=== PATIENT | female | born 2000 | race Caucasian/White ===

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

== ENCOUNTER 2020-08-21 03:03 | Inpatient (IN) ==
[2020-08-21] MEDS ORDERED: ONDANSETRON 4 MG/2 ML VIAL IV PRN (03:12)
[2020-08-21] MEDS ORDERED: MEPERIDINE 50 MG/1 ML VIAL IV PRN (03:12)
[2020-08-21] MEDS ORDERED: OXYTOCIN/LR 20 UNIT/1,000 ML BAG IV SCH (03:30)
[2020-08-21] MEDS: LACTATED RINGERS 1,000 ML IV SCH ×2 (03:30→08:18)
[2020-08-21 03:44] LABS: Basophils % 0.2 % (0.0-0.8); Eosinophils # 0.3 10*3/uL (0.0-0.87); Eosinophils % 2.9 % (0.00-10.9); Hematocrit 36.2 VOL% (35.7-47.0); Hemoglobin 12.5 GM/DL (12.0-16.0); Immature Granulocytes % 0.5 %; Immature Granulocytes Absolute 0.06 #; Lymphocytes % 16.7 % (21.3-54.2); Mean Corpuscular HGB Conc 34.5 GM/DL (32-36); Mean Platelet Volume 9.7 FL (9.6-12.0); Monocytes % 8.5 % (1.7-12.7); Neutrophils % 71.2 % (38.7-73.9); Platelet Count 252 T/CUMM (130-400); Red Blood Count 3.85 MC/CUMM (3.8-5.5); White Blood Count 11.9 T/CUMM (4-12)
[2020-08-21 03:53] LABS: Albumin 3.1 G/DL (3.4-5.0); Calcium 8.5 MG/DL (8.5-10.1); Potassium 3.8 MMOL/L (3.5-5.1)
[2020-08-21] MEDS ORDERED: PROMETHAZINE 25 MG/1 ML VIAL IM PRN (07:32)
[2020-08-21] MEDS ORDERED: CITRIC ACID/SODIUM CITRATE 30 ML UDCUP PO ONE (07:32)
[2020-08-21] MEDS ORDERED: ePHEDrine 50 MG/ML VIAL IV PRN (07:32)
[2020-08-21] MEDS ORDERED: diphenhydrAMINE 50 MG/1 ML VIAL IV PRN (07:32)
[2020-08-21] MEDS ORDERED: NALOXONE 0.4 MG/ML VIAL IV PRN (07:32)
[2020-08-21] MEDS ORDERED: hydrOXYzine HCL 25 MG/1 ML VIAL IM PRN (07:32)
[2020-08-21] MEDS ORDERED: FAMOTIDINE 20 MG/2 ML VIAL IV ONE (07:32)
[2020-08-21] MEDS ORDERED: fentaNYL 2 MCG/ROPIV 0.2% EPID 100 ML EPIDURAL SCH (08:00)
[2020-08-21] MEDS ORDERED: miSOPROStoL 200 MCG TABLET ONE (08:29)
[2020-08-21] MEDS ORDERED: TRANEXAMIC ACID 1,000 MG/10 ML VIAL ONE (08:30)
[2020-08-21] MEDS ORDERED: METHYLERGONOVINE 0.2 MG/1 ML AMP ONE (08:30)
[2020-08-21] MEDS ORDERED: OXYTOCIN/LR 0 UNIT/0 ML BAG IV ONE (08:30)
[2020-08-21] MEDS ORDERED: CARBOPROST TROMETHAMINE 250 MCG/ML AMP IM ONE (08:31)
[2020-08-21] MEDS ORDERED: SODIUM CHLORIDE 0.9% 0 ML IV ONE (08:31)
[2020-08-21 10:09] LABS: Cord Venous Blood HCO3 22.7 MMOL/L; Cord Venous Blood PCO2 58.5 MMHG; Cord Venous Blood PO2 18.1
[2020-08-21] MEDS ORDERED: RHO(D) IMMUNE GLOBULIN 300 MCG SYRINGE IM ONE (13:49)
[2020-08-21] MEDS ORDERED: DIPH/TET/ACEL PERT BOOSTER VACCINE 0.5 ML VIAL IM ONE (13:49)
[2020-08-21] MEDS ORDERED: MEASLES/MUMPS/RUBELLA VACCINE 0.5 ML VIAL SUBCUT ONE (13:49)
[2020-08-21] MEDS ORDERED: BENZOCAINE 20%/MENTHOL 0.5% SPRAY 56 GM CAN TOP PRN (13:49)
[2020-08-21] MEDS ORDERED: BISACODYL 10 MG SUPP RECTAL PRN (13:49)
[2020-08-21] MEDS ORDERED: oxyCODONE/ACETAMINOPHEN 5-325 MG TABLET PO PRN (13:49)
[2020-08-21] MEDS ORDERED: ACETAMINOPHEN 325 MG TABLET PO PRN (13:49)
[2020-08-21] MEDS ORDERED: LANOLIN 50% CREAM 0.3 OZ TUBE TOP PRN (13:49)
[2020-08-21] MEDS ORDERED: HYDROCORTISONE 2.5% RECTAL CREAM 30 GM TUBE TOP PRN (13:49)
[2020-08-21] MEDS ORDERED: OXYTOCIN/LR 20 UNIT/1,000 ML BAG IV ONE (13:49)
[2020-08-21] MEDS ORDERED: WITCH HAZEL PADS 100/JAR TOP PRN (13:49)
[2020-08-21] MEDS: IBUPROFEN 800 MG TABLET PO PRN ×2 (14:30→20:43)
[2020-08-21] MEDS: DOCUSATE SODIUM 100 MG CAPSULE PO SCH (20:43)
[2020-08-21] MEDS: oxyCODONE/ACETAMINOPHEN 5-325 MG TABLET PO PRN (20:43)
[2020-08-22] MEDS: IBUPROFEN 800 MG TABLET PO PRN ×2 (02:20→20:43)
[2020-08-22] MEDS: oxyCODONE/ACETAMINOPHEN 5-325 MG TABLET PO PRN ×3 (02:21→18:08)
[2020-08-22 05:47] LABS: Basophils % 0.2 % (0.0-0.8); Eosinophils # 0.4 10*3/uL (0.0-0.87); Eosinophils % 2.7 % (0.00-10.9); Hematocrit 34.7 VOL% (35.7-47.0); Hemoglobin 11.4 GM/DL (12.0-16.0); Immature Granulocytes % 0.7 %; Immature Granulocytes Absolute 0.09 #; Lymphocytes # 2.2 10*3/uL (1.4-4.0); Mean Corpuscular HGB Conc 32.9 GM/DL (32-36); Mean Corpuscular Volume 95.1 FL (87-102); Mean Platelet Volume 9.9 FL (9.6-12.0); Monocytes % 8.4 % (1.7-12.7); Platelet Count 235 T/CUMM (130-400); Red Blood Count 3.65 MC/CUMM (3.8-5.5); Red Cell Distribution Width 11.9 % (9.3-17.3); White Blood Count 13.2 T/CUMM (4-12)
[2020-08-22] MEDS: LACTATED RINGERS 1,000 ML IV SCH (08:04)
[2020-08-22] MEDS: DOCUSATE SODIUM 100 MG CAPSULE PO SCH ×2 (08:21→20:43)
[2020-08-22] MEDS ORDERED: SERTRALINE 50 MG TABLET PO SCH (22:30)
[2020-08-22] MEDS ORDERED: CLORAZEPATE 3.75 MG TABLET PO ONE (22:30)
[2020-08-23] MEDS: oxyCODONE/ACETAMINOPHEN 5-325 MG TABLET PO PRN (04:32)
[2020-08-23] MEDS: DOCUSATE SODIUM 100 MG CAPSULE PO SCH (09:48)
[2020-08-23 11:11] VITALS: BP 111/64
== END 2020-08-23 13:15 | disposition home or self-care (01) | DRG 807 ==
LOC: N.LD 03:03 → N.OB 13:43
PROVIDERS: ADMIT Obstetrics & Gynecology; ATTEND Obstetrics & Gynecology

== ENCOUNTER 2021-09-04 17:14 | Observation (INO) ==
[2021-09-04 17:46] LABS: Glucose,Urine (UA) Negative (Negative); Ketones,Urine Negative (Negative); Nitrite,Urine Negative (Negative); Protein,Urine 30 mg/dL (Negative); Urine Appearance Clear (Clear); Urine Color Yellow (Yellow)
[2021-09-04 17:47] LABS: Bilirubin,Urine Negative (Negative); Blood, Urine Large mg/dL (Negative)
[2021-09-04 17:49] LABS: Bacteria,Urine Occasional /HPF (Few); Mucus,Urine Few /LPF (Occasional); RBC,Urine 1461 /HPF (0-4); Squamous Epithelial Cell,Urine Occasional /HPF (0-10)
[2021-09-04] MEDS ORDERED: LACTATED RINGERS 1,000 ML IV ONE (17:56)
[2021-09-04] MEDS ORDERED: MEPERIDINE 25 MG/1 ML VIAL IV ONE (18:05)
[2021-09-04] MEDS ORDERED: ONDANSETRON 4 MG/2 ML VIAL IV ONE (18:05)
[2021-09-04] MEDS: LEVOFLOXACIN INJ 500 MG/100 ML PREMIX IV SCH (18:19)
[2021-09-04] MEDS ORDERED: MEPERIDINE 50 MG/1 ML VIAL IV ONE (18:30)
[2021-09-04] MEDS: LACTATED RINGERS 1,000 ML IV SCH (20:30)
[2021-09-04] MEDS ORDERED: HYDROCORTISONE 2.5% RECTAL CREAM 30 GM TUBE TOP PRN (23:02)
[2021-09-04] MEDS ORDERED: WITCH HAZEL PADS 100/JAR TOP PRN (23:03)
[2021-09-04] MEDS: ACETAMINOPHEN/CODEINE 300-30 MG TABLET PO PRN (23:16)
[2021-09-05] MEDS: ACETAMINOPHEN/CODEINE 300-30 MG TABLET PO PRN ×4 (03:02→19:59)
[2021-09-05] MEDS: LACTATED RINGERS 1,000 ML IV SCH ×3 (04:50→21:28)
[2021-09-05] MEDS ORDERED: WHITE PETROLATUM 30 GM TUBE TOP PRN (09:36)
[2021-09-05] MEDS: ONDANSETRON 4 MG/2 ML VIAL IV PRN ×2 (12:16→21:42)
[2021-09-05] MEDS: LEVOFLOXACIN INJ 500 MG/100 ML PREMIX IV SCH (17:20)
[2021-09-05] MEDS: PHENAZOPYRIDINE 95 MG TABLET PO SCH (17:20)
[2021-09-05] MEDS: DOCUSATE SODIUM 100 MG CAPSULE PO PRN (19:59)
[2021-09-05] MEDS ORDERED: diphenhydrAMINE CAP 25 MG CAPSULE ONE (21:22)
[2021-09-05] MEDS: diphenhydrAMINE CAP 25 MG CAPSULE PO PRN (21:27)
[2021-09-05 22:28] LABS: Basophils % 0.2 % (0.0-0.8); Eosinophils # 0.4 10*3/uL (0.0-0.87); Hematocrit 31.8 VOL% (35.7-47.0); Hemoglobin 10.7 GM/DL (12.0-16.0); Immature Granulocytes % 0.7 %; Immature Granulocytes Absolute 0.06 #; Lymphocytes # 1.9 10*3/uL (1.4-4.0); Lymphocytes % 20.6 % (21.3-54.2); Mean Corpuscular HGB Conc 33.6 GM/DL (32-36); Mean Corpuscular Volume 93.5 FL (87-102); Mean Platelet Volume 9.4 FL (9.6-12.0); Monocytes # 0.6 10*3/uL (0.11-0.8); Monocytes % 6.1 % (1.7-12.7); Neutrophils % 68.4 % (38.7-73.9); Platelet Count 219 T/CUMM (130-400); Red Cell Distribution Width 12.1 % (9.3-17.3); White Blood Count 9.2 T/CUMM (4-12)
[2021-09-06] MEDS: ACETAMINOPHEN/CODEINE 300-30 MG TABLET PO PRN ×2 (02:36→07:02)
[2021-09-06] MEDS: diphenhydrAMINE CAP 25 MG CAPSULE PO PRN ×2 (03:47→12:45)
[2021-09-06] MEDS: LACTATED RINGERS 1,000 ML IV SCH ×2 (03:48→09:56)
[2021-09-06] MEDS: PHENAZOPYRIDINE 95 MG TABLET PO SCH ×2 (07:59→12:45)
[2021-09-06] MEDS: DOCUSATE SODIUM 100 MG CAPSULE PO PRN (07:59)
[2021-09-06 09:05] VITALS: BP 110/57
== END 2021-09-06 14:23 | disposition home or self-care (01) ==
LOC: N.OB 17:14 → N.LDOUT 17:14 → N.LD 17:18 → N.OB 21:05
PROVIDERS: ADMIT Obstetrics & Gynecology; ATTEND Obstetrics & Gynecology

== ENCOUNTER 2021-11-28 09:55 | Inpatient (IN) ==
[2021-11-28] MEDS ORDERED: LACTATED RINGERS 1,000 ML IV ONE (10:06)
[2021-11-28] MEDS ORDERED: cefTRIAXone 1,000 MG in SODIUM CHLORIDE 0.9% 100 ML IV ONE (10:07)
[2021-11-28 10:48] LABS: Mucus,Urine Moderate /LPF (Occasional); RBC,Urine 1573 /HPF (0-4); Squamous Epithelial Cell,Urine Occasional /HPF (0-10)
[2021-11-28 10:52] LABS: Bilirubin,Urine Negative (Negative); Blood, Urine Large mg/dL (Negative); Glucose,Urine (UA) Negative (Negative); Ketones,Urine Trace mg/dL (Negative); Nitrite,Urine Negative (Negative); Protein,Urine 100 mg/dL (Negative); Urine Appearance Cloudy (Clear); Urine Color Dark yellow (Yellow); Urine Specific Gravity > 1.030 (1.001-1.035)
[2021-11-28] MEDS ORDERED: PROMETHAZINE 25 MG/1 ML VIAL IM ONE (10:52)
[2021-11-28] MEDS ORDERED: MEPERIDINE 50 MG/1 ML VIAL IV ONE (10:52)
[2021-11-28 11:02] LABS: Barbiturates Screen,Urine Negative (Negative); Benzodiazepines Screen,Urine Negative (Negative); Cannabinoid Screen,Urine Negative (Negative); Opiate Screen,Urine Negative (Negative); Phencyclidine Screen,Urine Negative (Negative)
[2021-11-28] MEDS: LACTATED RINGERS 1,000 ML IV SCH ×2 (13:05→20:15)
[2021-11-28] MEDS ORDERED: PROMETHAZINE 25 MG/1 ML VIAL IM PRN (13:59)
[2021-11-28] MEDS: MEPERIDINE 50 MG/1 ML VIAL IV PRN (17:03)
[2021-11-28] MEDS ORDERED: ACETAMINOPHEN/CODEINE 300-30 MG TABLET PO PRN (18:04)
[2021-11-28] MEDS ORDERED: ALUMINUM/MAGNES/SIMETH MAX STR 30 ML UDCUP PO PRN (18:21)
[2021-11-28] MEDS ORDERED: ALBUTEROL/IPRATROPIUM 3 ML NEB RESP TX PRN (19:53)
[2021-11-28] MEDS: DOCUSATE SODIUM 100 MG CAPSULE PO SCH (20:14)
[2021-11-28] MEDS: TAMSULOSIN 0.4 MG CAPSULE PO SCH (20:14)
[2021-11-29] MEDS: ACETAMINOPHEN/CODEINE 300-30 MG TABLET PO PRN ×4 (01:36→23:01)
[2021-11-29] MEDS: LACTATED RINGERS 1,000 ML IV SCH ×3 (04:27→20:43)
[2021-11-29] MEDS: DOCUSATE SODIUM 100 MG CAPSULE PO SCH ×2 (10:06→20:43)
[2021-11-29] MEDS: TAMSULOSIN 0.4 MG CAPSULE PO SCH (20:42)
[2021-11-30] MEDS: MEPERIDINE 50 MG/1 ML VIAL IV PRN ×5 (02:30→21:32)
[2021-11-30] MEDS: LACTATED RINGERS 1,000 ML IV SCH ×3 (04:49→23:58)
[2021-11-30] MEDS: ONDANSETRON 4 MG/2 ML VIAL IV PRN ×2 (12:54→21:55)
[2021-11-30] MEDS: DOCUSATE SODIUM 100 MG CAPSULE PO SCH ×2 (13:07→21:31)
[2021-11-30] MEDS ORDERED: BETAMETH SODIUM PHOS/ACETATE 30 MG/5 ML VIAL IM SCH (17:30)
[2021-11-30] MEDS ORDERED: ZALEPLON 5 MG CAPSULE PO PRN (18:06)
[2021-11-30 18:41] LABS: Basophils % 0.3 % (0.0-0.8); Eosinophils # 0.4 10*3/uL (0.0-0.87); Eosinophils % 4.3 % (0.00-10.9); Hematocrit 30.8 VOL% (35.7-47.0); Hemoglobin 10.3 GM/DL (12.0-16.0); Immature Granulocytes % 0.8 %; Immature Granulocytes Absolute 0.08 #; Lymphocytes # 1.6 10*3/uL (1.4-4.0); Lymphocytes % 16.5 % (21.3-54.2); Mean Corpuscular HGB Conc 33.4 GM/DL (32-36); Mean Corpuscular Volume 93.3 FL (87-102); Mean Platelet Volume 9.7 FL (9.6-12.0); Monocytes # 0.8 10*3/uL (0.11-0.8); Monocytes % 7.5 % (1.7-12.7); Neutrophils % 70.6 % (38.7-73.9); Platelet Count 217 T/CUMM (130-400); Red Cell Distribution Width 11.9 % (9.3-17.3)
[2021-11-30 18:52] LABS: INR 0.9; PT Patient Result 10.3 SECS (10.1-12.1); Partial Thromboplastin Time 28.5 SECS (23.7-32.9)
[2021-11-30 18:59] LABS: Alanine Aminotransferase < 9 U/L (13-56); Albumin 2.4 G/DL (3.4-5.0); Alkaline Phosphatase 91 U/L (45-117); Aspartate Amino Transferase 18 U/L (0-37); Blood Urea Nitrogen 1 MG/DL (7-18); Calcium 8.8 MG/DL (8.5-10.1); Carbon Dioxide 25 MMOL/L (21-32); Chloride 107 MMOL/L (98-107); Glucose 76 MG/DL (74-106); Osmolality,Calculated 267.8 MOS/KG (273-304); Potassium 3.8 MMOL/L (3.5-5.1); Sodium 137 MMOL/L (136-145); Total Protein 5.6 G/DL (6.4-8.2)
[2021-11-30] MEDS: TAMSULOSIN 0.4 MG CAPSULE PO SCH (21:31)
[2021-12-01] MEDS ORDERED: FAMOTIDINE 20 MG/2 ML VIAL IV ONE ×2 (01:57→12:27)
[2021-12-01] MEDS: MEPERIDINE 50 MG/1 ML VIAL IV PRN ×2 (02:02→09:10)
[2021-12-01] MEDS ORDERED: KETOROLAC 30 MG/1 ML VIAL IV SCH ×2 (09:00→21:00)
[2021-12-01] MEDS: LACTATED RINGERS 1,000 ML IV SCH (09:13)
[2021-12-01] MEDS ORDERED: LIDOCAINE 2% TOP JELLY 20 ML VIAL INTRAURETH ONE (10:41)
[2021-12-01] MEDS ORDERED: fentaNYL 100 MCG/2 ML VIAL ONE (11:17)
[2021-12-01] MEDS ORDERED: propofoL 200 MG/20 ML VIAL IV ONE ×2 (11:17→12:32)
[2021-12-01] MEDS ORDERED: LIDOCAINE 2% 5 ML VIAL ONE (11:17)
[2021-12-01] MEDS ORDERED: SUCCINYLCHOLINE 200 MG/10 ML VIAL ONE ×2 (11:17→12:32)
[2021-12-01] MEDS ORDERED: CLINDAMYCIN INJ 900 MG/50 ML PREMIX IV ONE (11:45)
[2021-12-01] MEDS ORDERED: SEVOFLURANE 1 UNIT/15 MINUTE INH ONE ×2 (11:49→13:08)
[2021-12-01] MEDS ORDERED: ROCURONIUM 50 MG/5 ML VIAL IV ONE (11:49)
[2021-12-01] MEDS ORDERED: NEOSTIGMINE 10 MG/10 ML VIAL ONE (11:50)
[2021-12-01] MEDS ORDERED: OXYTOCIN/LR 20 UNIT/1,000 ML BAG IV ONE ×4 (12:25→21:36)
[2021-12-01] MEDS ORDERED: TRANEXAMIC ACID 1,000 MG/10 ML VIAL ONE (12:34)
[2021-12-01] MEDS ORDERED: CARBOPROST TROMETHAMINE 250 MCG/ML AMP IM ONE (12:34)
[2021-12-01] MEDS ORDERED: SODIUM CHLORIDE 0.9% 0 ML IV ONE (12:34)
[2021-12-01] MEDS ORDERED: miSOPROStoL 200 MCG TABLET ONE (12:34)
[2021-12-01] MEDS ORDERED: METHYLERGONOVINE 0.2 MG/1 ML AMP ONE (12:34)
[2021-12-01] MEDS ORDERED: MIDAZOLAM 2 MG/2 ML VIAL ONE (12:40)
[2021-12-01] MEDS ORDERED: fentaNYL 250 MCG/5 ML VIAL ONE (12:41)
[2021-12-01 12:57] LABS: Cord Arterial Blood HCO3 21.5 MMOL/L
[2021-12-01 13:00] LABS: Cord Venous Blood HCO3 22.3 MMOL/L; Cord Venous Blood PCO2 54.9 MMHG
[2021-12-01] MEDS ORDERED: TISSUE ADHESIVE 1 EACH APPLICATOR TOP ONE (13:05)
[2021-12-01] MEDS ORDERED: KETOROLAC 30 MG/1 ML VIAL ONE (13:08)
[2021-12-01] MEDS ORDERED: DEXAMETHASONE 4 MG/1 ML VIAL ONE (13:11)
[2021-12-01] MEDS ORDERED: PROMETHAZINE 25 MG/1 ML VIAL ONE (13:12)
[2021-12-01] MEDS ORDERED: ROPIVACAINE 0.5% 30 ML VIAL ONE (13:24)
[2021-12-01] MEDS ORDERED: LIDOCAINE 1% 5 ML VIAL ONE (13:25)
[2021-12-01] MEDS ORDERED: RHO(D) IMMUNE GLOBULIN 300 MCG SYRINGE IM ONE (13:26)
[2021-12-01] MEDS ORDERED: SIMETHICONE CHEW 80 MG TABLET PO PRN (13:26)
[2021-12-01] MEDS ORDERED: MAGNESIUM HYDROXIDE SUSP 30 ML UDCUP PO PRN (13:26)
[2021-12-01] MEDS ORDERED: LACTATED RINGERS 1,000 ML IV SCH (13:30)
[2021-12-01] MEDS ORDERED: NALOXONE 0.4 MG/ML VIAL IV PRN (13:31)
[2021-12-01] MEDS ORDERED: HYDROmorphone 1 MG/1 ML SYRINGE IV PRN (13:38)
[2021-12-01] MEDS ORDERED: ONDANSETRON 4 MG/2 ML VIAL ONE (13:59)
[2021-12-01] MEDS ORDERED: GLYCOPYRROLATE 0.4 MG/2 ML VIAL ONE (13:59)
[2021-12-01] MEDS ORDERED: HYDROmorphone PCA 30 MG/30 ML SYRINGE IV SCH (14:00)
[2021-12-01] MEDS ORDERED: ALBUTEROL INHALER 18 GM INH ONE (14:01)
[2021-12-01] MEDS ORDERED: diphenhydrAMINE 50 MG/1 ML VIAL IV ONE (14:30)
[2021-12-01] MEDS ORDERED: diphenhydrAMINE 25 MG/10 ML UDCUP PO PRN (14:30)
[2021-12-01] MEDS ORDERED: diphenhydrAMINE 50 MG/1 ML VIAL ONE (14:31)
[2021-12-01] MEDS: LEVOFLOXACIN INJ 500 MG/100 ML PREMIX IV SCH (23:35)
[2021-12-02] MEDS ORDERED: diphenhydrAMINE 50 MG/1 ML VIAL IV PRN (00:48)
[2021-12-02 06:16] LABS: Basophils % 0.2 % (0.0-0.8); Eosinophils % 0.1 % (0.00-10.9); Hematocrit 30.7 VOL% (35.7-47.0); Hemoglobin 10.3 GM/DL (12.0-16.0); Lymphocytes # 1.5 10*3/uL (1.4-4.0); Lymphocytes % 7.3 % (21.3-54.2); Mean Corpuscular HGB Conc 33.6 GM/DL (32-36); Mean Corpuscular Volume 91.9 FL (87-102); Mean Platelet Volume 9.6 FL (9.6-12.0); Monocytes # 1.7 10*3/uL (0.11-0.8); Neutrophils % 83.4 % (38.7-73.9); Platelet Count 268 T/CUMM (130-400); Red Blood Count 3.34 MC/CUMM (3.8-5.5); Red Cell Distribution Width 11.7 % (9.3-17.3)
[2021-12-02] MEDS: ACETAMINOPHEN 500 MG TABLET PO SCH ×2 (06:37→13:25)
[2021-12-02 06:42] LABS: Band Neutrophils 1 % (0-10); Eosinophils 1 % (0-10); Lymphocytes 11 % (20-55); Platelet Estimate Normal; Total Cells Counted 100
[2021-12-02] MEDS ORDERED: MULTIVITAMIN (PRENATAL) TABLET PO SCH (09:00)
[2021-12-02] MEDS: DOCUSATE SODIUM 100 MG CAPSULE PO SCH ×2 (09:00→23:36)
[2021-12-02] MEDS: MULTIVITAMIN (PRENATAL) TABLET PO SCH (09:48)
[2021-12-02] MEDS ORDERED: KETOROLAC 30 MG/1 ML VIAL IV SCH ×2 (10:30→13:00)
[2021-12-02] MEDS: IBUPROFEN 800 MG TABLET PO PRN (19:35)
[2021-12-02] MEDS ORDERED: IBUPROFEN 800 MG TABLET PO SCH (21:00)
[2021-12-02] MEDS: LEVOFLOXACIN INJ 500 MG/100 ML PREMIX IV SCH (22:30)
[2021-12-03] MEDS: IBUPROFEN 800 MG TABLET PO PRN ×2 (01:48→19:30)
[2021-12-03 04:32] LABS: Basophils % 0.2 % (0.0-0.8); Eosinophils # 0.2 10*3/uL (0.0-0.87); Eosinophils % 1.8 % (0.00-10.9); Hematocrit 29.6 VOL% (35.7-47.0); Hemoglobin 9.7 GM/DL (12.0-16.0); Immature Granulocytes % 0.7 %; Lymphocytes # 1.9 10*3/uL (1.4-4.0); Lymphocytes % 13.6 % (21.3-54.2); Mean Corpuscular HGB Conc 32.8 GM/DL (32-36); Mean Corpuscular Volume 93.4 FL (87-102); Mean Platelet Volume 9.4 FL (9.6-12.0); Monocytes # 1.3 10*3/uL (0.11-0.8); Monocytes % 9.4 % (1.7-12.7); Neutrophils % 74.3 % (38.7-73.9); Platelet Count 287 T/CUMM (130-400); Red Blood Count 3.17 MC/CUMM (3.8-5.5); Red Cell Distribution Width 11.9 % (9.3-17.3); White Blood Count 13.6 T/CUMM (4-12)
[2021-12-03] MEDS ORDERED: IBUPROFEN 800 MG TABLET PO SCH (08:00)
[2021-12-03] MEDS: DOCUSATE SODIUM 100 MG CAPSULE PO SCH ×2 (09:24→21:54)
[2021-12-03] MEDS: MULTIVITAMIN (PRENATAL) TABLET PO SCH (09:24)
[2021-12-04] MEDS: oxyCODONE/ACETAMINOPHEN 5-325 MG TABLET PO PRN ×2 (00:33→08:42)
[2021-12-04] MEDS: LEVOFLOXACIN INJ 500 MG/100 ML PREMIX IV SCH (00:35)
[2021-12-04] MEDS: IBUPROFEN 800 MG TABLET PO PRN (01:44)
[2021-12-04] MEDS: MULTIVITAMIN (PRENATAL) TABLET PO SCH (08:42)
[2021-12-04] MEDS: DOCUSATE SODIUM 100 MG CAPSULE PO SCH (08:42)
[2021-12-04 09:00] VITALS: BP 135/72
[2021-12-04] MEDS ORDERED: DIPH/TET/ACEL PERT BOOSTER VACCINE 0.5 ML VIAL IM ONE (11:57)
== END 2021-12-04 16:25 | disposition home or self-care (01) | DRG 787 ==
LOC: N.LD 09:55 → N.OB 09:55 → N.LDOUT 09:55 → N.LD 09:59 → N.OB 13:15 → N.LD 12-01 12:59 → N.OB 12-01 20:52
PROVIDERS: ADMIT Obstetrics & Gynecology; ATTEND Obstetrics & Gynecology
PROC: LDCSECT (ICD-10-PCS; 2021-12-01 12:20)